=== PATIENT | male | born 1985 | race African-American/Black ===

== ENCOUNTER → 2018-02-11 | Outpatient (CLI) | payer SELFPAY | LOC: M OUTALCOH 11:27 | DX: F10.10 Alcohol abuse, uncomplicated (principal) ==

== ENCOUNTER → 2018-11-22 | Outpatient (CLI) | payer SELFPAY | LOC: M OUTALCOH 09:29 | PROVIDERS: ATTEND Psychiatry & Neurology Psychiatry | DX: Z03.89 Encounter for observation for other suspected diseases and conditions ruled out (principal) ==